=== PATIENT | male | born 1955 | race Caucasian/White ===

== ENCOUNTER 2017-01-29 17:15 | Emergency (ER) | payer OTHER ==
[~2017-01-29] VITALS: Ht 172.7 cm; Wt 111.8 kg
[~2017-01-29 17:15] MED LIST: ACETAMINOPHEN PO; ADVAIR 250-501 EACH IH; ADVAIR 250/501 DISK IH; ASPIR-MOX IB T325 MG PO; ASPIRIN325 MG PO; ASPIRIN81 M1 PO; BENTYL20 MG PO; CATAPRES0.1 MG PO; CLONIDINE HCL0.1 MG PO; DRISDOL50000 UNIT PO; ELAVIL50 MG PO; FIBER-LAX; Fish Oil PO; HABITROL,NICODE21 MG TD; HYDROCHLOROTHIA25 MG PO; K-DUR10 ME1 PO; LANTUS 3 M100 UNITS/ PO; LANTUS 3 M100 UNITS/ SC; LASIX40 MG PO; LAXATIVE; LAXATIVE5 M1 PO; LIPITOR40 MG PO; LIPITOR80 MG PO; LOPRESSOR12.5 MG PO; LOPRESSOR25 MG PO; LOPRESSOR50 MG PO; MEDROL DOSEPAK4 MG PO; MICROZIDE12.5 M1 PO; MONOPRIL10 MG PO; MONOPRIL40 MG PO; NEURONTIN300 MG PO; NIACIN1000 MG PO; NIACIN500 M1 PO; NIASPAN,SLO-N1000 MG PO; NORVASC10 M1 PO; NORVASC10 MG PO; NORVASC2.5 MG PO; NORVASC5 MG PO; NORVASE PO; NOVOLIN N100 UNITS/ SQ; NOVOLOG PE100 UNITS/ SC; NovoLIN N (NPH),Humu SC; PLAVIX75 MG PO; PREDNISONE50 MG PO; PRILOSEC20 MG PO; PROAIR HFA8.5 GM IH; PROVENTIL HFA6.7 GM IH; PROVENTIL17 G1 IH; PROVENTIL17 GM IH; REGLAN10 M1 PO; REGLAN10 MG PO; SIMVASTATIN40 MG PO; STOOL SOFTENER; STOOL SOFTENER1 EAC2 PO; STOOL SOFTENER1 EACH PO; ULTRAM50 MG PO; ZANTAC300 MG PO; ZITHROMAX250 MG PO; Zocor PO; [UNRECOGNIZED DRUG - OTHER] PO
[2017-01-29] MEDS ORDERED: PREDNISONE50 MG PO (19:28)
[2017-01-29] MEDS ORDERED: PROAIR HFA8.5 GM IH (19:28)
[2017-01-29] MEDS ORDERED: DOXYCYCLINE HY100 MG PO (19:28)
[2017-01-29 19:40] VITALS: BP 206/85
== END 2017-01-29 19:53 | disposition home or self-care (01) ==
LOC: EME 17:15
DX: J44.1 Chronic obstructive pulmonary disease with (acute) exacerbation (principal); I11.0 Hypertensive heart disease with heart failure; I50.9 Heart failure, unspecified; E78.5 Hyperlipidemia, unspecified; E11.9 Type 2 diabetes mellitus without complications; Z79.4 Long term (current) use of insulin; K21.9 Gastro-esophageal reflux disease without esophagitis; F17.200 Nicotine dependence, unspecified, uncomplicated; Z95.5 Presence of coronary angioplasty implant and graft; Z79.82 Long term (current) use of aspirin; Z79.02 Long term (current) use of antithrombotics/antiplatelets
CPT/HCPCS: 71010; 94640; 99281; 99284; J7512